=== PATIENT | male | born 1945 | race Caucasian/White ===

== ENCOUNTER 2019-02-03 07:33 | Outpatient (CLI) | payer MEDICARE, OTHER ==
[~2019-02-03] VITALS: Ht 180.3 cm; Wt 53.3 kg
[2019-02-03 08:33] VITALS: BP 113/61; PULSE 76; TEMP 97.8
[2019-02-03] MEDS ORDERED: RT ADVAIR 128 DISKUS IH (08:57)
[2019-02-03] MEDS ORDERED: CELEBREX 200MG200 MG PO (08:58)
[2019-02-03] MEDS ORDERED: TYLENOL 325MG325 MG PO (09:10)
[2019-02-03] MEDS ORDERED: RT SPIRIVA18 MCG IH (09:12)
[2019-02-03] MEDS ORDERED: COMBIRESP IH (09:12)
[2019-02-03] MEDS ORDERED: THEO-24 30300 MG/CAP PO (09:13)
== END 2019-02-03 09:44 | disposition home or self-care (01) ==
LOC: EUO 07:33
DX: I95.1 Orthostatic hypotension (principal)
CPT/HCPCS: J0834

== ENCOUNTER 2019-02-26 07:16 | Outpatient (CLI) | payer MEDICARE, OTHER ==
[~2019-02-26] VITALS: Ht 180.3 cm; Wt 54.5 kg
[~2019-02-26 07:16] MED LIST: CELEBREX 200MG200 MG PO; COMBIRESP IH; RT ADVAIR 128 DISKUS IH; RT SPIRIVA18 MCG IH; THEO-24 30300 MG/CAP PO; TYLENOL 325MG325 MG PO
[2019-02-26 08:16] VITALS: BP 124/60; PULSE 76; TEMP 98.7
--- NOTE | 2019-02-26 09:14 | NUR ---
Labs obtained by [employer] technician.at time intervals ordered.
[2019-02-27 12:52] LABS: ADRENOCORTICOTROPIC HORMONE 64 pg/mL (())
== END 2019-02-26 09:25 | disposition home or self-care (01) ==
LOC: EUO 07:16
PROVIDERS: Internal Medicine Interventional Cardiology
DX: I95.1 Orthostatic hypotension (principal)
CPT/HCPCS: J0834